=== PATIENT | female | born 1995 | race African-American/Black ===

== ENCOUNTER 2024-05-20 13:20 | Emergency (ER) | payer OTHER ==
[~2024-05-20] VITALS: Ht 172.7 cm; Wt 52.3 kg
[2024-05-20 14:04] VITALS: TEMP 98.2
[2024-05-20] MEDS: SODIUM CHLORIDE 0.9% 1,000 ML IV ONE (14:26)
[2024-05-20] MEDS: METOCLOPRAMIDE HCL 5 MG/ML 2 ML VIAL IVP ONE (14:26)
[2024-05-20 14:38] LABS: BASOPHILS % (AUTO) 0.2 % (0.0-2.0); EOSINOPHILS % (AUTO) 0 % (1.0-6.0); HEMATOCRIT 36.3 % (36-46); HEMOGLOBIN 11.7 g/dL (12.0-16.0); LYMPHOCYTES % (AUTO) 6.1 % (22.0-44.0); MEAN CORPUSCULAR HEMOGLOBIN 26.7 pg (26.0-34.0); MEAN CORPUSCULAR HGB CONC 32.2 G/dL (31.0-37.0); MEAN CORPUSCULAR VOLUME 83 fL (80-100); MONOCYTES # (AUTO) 1.4 K/uL (0.1-1.0); MONOCYTES % (AUTO) 8.4 % (2.0-9.0); PLATELET COUNT (AUTO) 304 K/uL (150-450); RED BLOOD CELL COUNT(AUTO) 4.38 MIL/uL (4.00-5.20); RED CELL DISTRIBUTION WIDTH 13.5 % (11.5-14.5); WHITE BLOOD COUNT (AUTO) 16.4 K/uL (4.5-11.0)
[2024-05-20 14:39] LABS: NEUTROPHILS % (AUTO) 85.3 % (40.0-70.0)
[2024-05-20 14:49] LABS: ANION GAP 15 mmol/L (8-16); CALCIUM, TOTAL 9.9 mg/dL (8.8-10.5); CARBON DIOXIDE 27 mmol/L (22-29); CHLORIDE 100 mmol/L (98-107); CREATININE 0.86 mg/dL (0.60-1.30); GLOMERULAR FILTR. RATE CALC > 60 mL/min (>60); GLUCOSE,RANDOM 110 mg/dL (70-110); POTASSIUM 3.1 mmol/L (3.5-5.1); SODIUM SERUM 142 mmol/L (136-145); UREA NITROGEN, BLOOD 16 mg/dL (7-18)
[2024-05-20 14:55] LABS: ALANINE AMINOTRANSFERASE 38 U/L (12-78); ALBUMIN 4.6 g/dL (3.4-5.0); ALKALINE PHOSPHATASE 43 U/L (46-116); ASPARTATE AMINOTRANSFERASE 26 U/L (15-37); BILIRUBIN,TOTAL 0.9 mg/dL (0.1-1.0); TOTAL PROTEIN, SERUM 8.7 g/dL (6.4-8.2)
[2024-05-20] MEDS: POTASSIUM CHLORIDE 20 MEQ ER TABLET PO ONE (15:15)
[2024-05-20] MEDS: LORazepam 1 MG TABLET PO ONE (15:15)
[2024-05-20 15:16] LABS: APPEARANCE,URINE CLEAR (CLEAR); BILIRUBIN,URINE NEGATIVE (NEGATIVE); COLOR,URINE YELLOW (YELLOW); GLUCOSE, URINE (UA) NEGATIVE (NEGATIVE); LEUKOCYTE ESTERASE ,URINE NEGATIVE (NEGATIVE); NITRATE,URINE NEGATIVE (NEGATIVE); OCCULT BLOOD,URINE MODERATE (NEGATIVE); PROTEIN,URINE 100-200,SEE CONFIRM mg/dL (NEGATIVE); SPECIFIC GRAVITIY, URINE 1.032 (1.003-1.030); UROBILINOGEN,URINE <=1.0 mg/dL (<=1.0)
[2024-05-20 15:29] LABS: ALCOHOL, URINE DRUG SCREEN NEGATIVE (NEGATIVE); AMPHET/METH SCREEN,URINE NEGATIVE (NEGATIVE); BARBITURATE SCREEN, URINE NEGATIVE (NEGATIVE); BENZODIAZEPINES SCREEN,URINE NEGATIVE (NEGATIVE); CANNABINOID SCREEN,URINE POSITIVE (NEGATIVE); COCAINE SCREEN,URINE NEGATIVE (NEGATIVE); METHADONE SCREEN, URINE NEGATIVE (NEGATIVE); OPIATE SCREEN,URINE NEGATIVE (NEGATIVE); PHENCYCLIDINE SCREEN,URINE NEGATIVE (NEGATIVE)
[2024-05-20 15:32] LABS: ALCOHOL, BLOOD (SERUM) < 3 mg/dL (0-10)
[2024-05-20 15:33] LABS: BACTERIA,URINE Rare /HPF (None Seen); SQUAMOUS EPITHELIAL CELL,UR Few /LPF (None Seen); SULFOSALICYLIC ACID,URINE 2+ (Negative); WBC,URINE 0-2 /HPF (0-5)
[2024-05-20] MEDS: ONDANSETRON HCL 4 MG/2 ML VIAL IVP ONE (15:38)
[2024-05-20 15:40] VITALS: BP 132/81; PULSE 85; RESP 18; O2SAT 100
[2024-05-20] MEDS: LORazepam 2 MG/ML VIAL IVP ONE (16:18)
[2024-05-21] MEDS ORDERED: ONDA-104 PO (15:53)
== END 2024-05-20 17:33 | disposition home or self-care (01) ==
LOC: EMS 13:20
DX: R11.2 Nausea with vomiting, unspecified (principal); F41.9 Anxiety disorder, unspecified; F32.A Depression, unspecified; F12.90 Cannabis use, unspecified, uncomplicated; Z90.89 Acquired absence of other organs
CPT/HCPCS: 99285; 74176; 96374; 96375; 96361; 80048; 80076; 81001; 84703; 85025; 36415; 80307; G0480; J2060; J2765; J2405; J7030; 81002

== ENCOUNTER 2024-05-21 13:45 | Emergency (ER) | payer OTHER ==
[~2024-05-21] VITALS: Ht 167.6 cm; Wt 54.5 kg
[2024-05-21 13:59] VITALS: BP 135/75; PULSE 77; RESP 18; TEMP 97.1; O2SAT 96
[2024-05-21] MEDS: ONDANSETRON 4 MG TABLET PO ONE (14:33)
[2024-05-21 15:04] LABS: BASOPHILS % (AUTO) 0.2 % (0.0-2.0); EOSINOPHILS % (AUTO) 0.1 % (1.0-6.0); HEMATOCRIT 35.9 % (36-46); HEMOGLOBIN 11.5 g/dL (12.0-16.0); LYMPHOCYTES # (AUTO) 1.4 K/uL (1.0-4.8); LYMPHOCYTES % (AUTO) 9.6 % (22.0-44.0); MEAN CORPUSCULAR HEMOGLOBIN 26.6 pg (26.0-34.0); MEAN CORPUSCULAR VOLUME 83 fL (80-100); MONOCYTES # (AUTO) 1.4 K/uL (0.1-1.0); MONOCYTES % (AUTO) 9.8 % (2.0-9.0); NEUTROPHILS # (AUTO) 11.6 K/uL (1.8-7.7); NEUTROPHILS % (AUTO) 80.3 % (40.0-70.0); PLATELET COUNT (AUTO) 289 K/uL (150-450); RED BLOOD CELL COUNT(AUTO) 4.33 MIL/uL (4.00-5.20); RED CELL DISTRIBUTION WIDTH 13.6 % (11.5-14.5); WHITE BLOOD COUNT (AUTO) 14.5 K/uL (4.5-11.0)
[2024-05-21 15:38] LABS: ANION GAP 15 mmol/L (8-16); CALCIUM, TOTAL 9.5 mg/dL (8.8-10.5); CARBON DIOXIDE 25 mmol/L (22-29); CHLORIDE 101 mmol/L (98-107); CREATININE 0.81 mg/dL (0.60-1.30); GLOMERULAR FILTR. RATE CALC > 60 mL/min (>60); GLUCOSE,RANDOM 97 mg/dL (70-110); POTASSIUM 3.3 mmol/L (3.5-5.1); SODIUM SERUM 141 mmol/L (136-145); UREA NITROGEN, BLOOD 16 mg/dL (7-18)
[2024-05-21] MEDS ORDERED: ONDA-104 PO (15:53)
== END 2024-05-21 15:58 | disposition home or self-care (01) ==
LOC: EMS 13:45
DX: F41.9 Anxiety disorder, unspecified (principal); R11.2 Nausea with vomiting, unspecified; F32.A Depression, unspecified; F12.90 Cannabis use, unspecified, uncomplicated; Z90.89 Acquired absence of other organs
CPT/HCPCS: 99283; 80048; 85025; 36415; Q0162